=== PATIENT | female | born 1985 | race American Indian/Alaskan Native ===

== ENCOUNTER 2017-02-12 23:17 | Emergency (ER) | payer MEDICAID ==
[2017-02-12 23:32] VITALS: BP 127/78
[2017-02-12 23:53] LABS: Basophils % (Auto) 0.8 % (0.0-1.8); Eosinophils % (Auto) 2.6 % (0.0-4.3); Hematocrit 40.9 % (30.3-42.9); Hemoglobin 13.4 gm/dl (10.1-14.3); Mean Corpuscular HGB Conc 33 % (30-34); Mean Corpuscular Hemoglobin 30 pg (28-32); Mean Corpuscular Volume 91 fl (79-97); Platelet Count 255 K/mm3 (140-440); Red Blood Count 4.52 M/mm3 (3.65-5.03); Red Cell Distribution Width 14.4 % (13.2-15.2); White Blood Count 14.7 K/mm3 (4.5-11.0)
[2017-02-13 00:09] LABS: Anion Gap 16 mmol/L; BUN/Creatinine Ratio 15.71; Blood Urea Nitrogen 11 mg/dL (7-17); Calcium 8.9 mg/dL (8.4-10.2); Carbon Dioxide 25 mmol/L (22-30); Chloride 100.8 mmol/L (98-107); Glucose 88 mg/dL (65-100); Potassium 3.7 mmol/L (3.6-5.0); Sodium 138 mmol/L (137-145)
--- NOTE | 2017-02-14 09:51 | ED Elopement Review ---
ED Pt Elopement review - Results review Lab results: Laboratory Tests 02/12/17 02/12/17 23:36 23:36 WBC 14.7 H RBC 4.52 Hgb 13.4 Hct 40.9 MCV 91 MCH 30 MCHC 33 RDW 14.4 Plt Count 255 Lymph % (Auto) 30.3 [place] % (Auto) 6.3 Eos % (Auto) 2.6 Baso % (Auto) 0.8 Lymph # 4.4 [place] # 0.9 H Eos # 0.4 Baso # 0.1 Seg Neutrophils % 60.0 Seg Neutrophils # 8.8 H Sodium 138 Potassium 3.7 Chloride 100.8 Carbon Dioxide 25 Anion Gap 16 BUN 11 Creatinine 0.7 Estimated GFR > 60 BUN/Creatinine Ratio 15.71 Glucose 88 Calcium 8.9 Troponin T < 0.010 - Call Back decision Pt Call Back Decision: No action required
== END 2017-02-12 23:45 | disposition left against medical advice (07) ==
LOC: ED 23:17
DX: R07.9 Chest pain, unspecified (principal); Z53.21 Procedure and treatment not carried out due to patient leaving prior to being seen by health care provider
CPT/HCPCS: 36415; 80048; 84484; 85025; 93005; 93010